=== PATIENT | male | born 1965 | race Caucasian/White ===

== ENCOUNTER 2017-11-05 10:10 | Inpatient (IN) ==
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
[2017-11-05] MEDS: 0.9 % Sodium Chloride 1,000 ML IVC SCH ×6 (11:21→17:08)
[2017-11-05 11:25] LABS: Basophils % 0.1 %; Eosinophils % 0.3 %; Hematocrit 39.4 % (37.5-50.1); Hemoglobin 13.4 g/dL (12.9-16.9); Immature Granulocytes % 0.4 % (0-4); Lymphocytes # 1.9 K/mcL (0.6-4.6); Lymphocytes % 12.2 %; Mean Corpuscular Hemoglobin 32.9 pg (28.0-33.3); Mean Corpuscular Volume 96.8 fL (83.0-100.0); Mean Platelet Volume 9.3 fL (9.4-12.4); Monocytes # 0.2 K/mcL (0.0-1.3); Monocytes % 1.2 %; Neutrophils # 13.4 K/mcL (1.6-8.9); Platelet Count 288 K/mcL (140-400); Red Blood Count 4.07 M/mcL (4.19-5.50); Red Cell Distribution Width 13.2 % (11.5-14.5); Segmented Neutrophils % 85.8 %
[2017-11-05 11:33] LABS: BUN/Creatinine Ratio 26 (6-26); Blood Urea Nitrogen 25 mg/dL (6-20); Calcium 8.6 mg/dL (8.6-10.3); Carbon Dioxide 24 mEq/L (23-29); Chloride 110 mEq/L (98-107); Glucose 188 mg/dL (70-105); Osmolality,Calculated 299 (280-300); Potassium 3.9 mEq/L (3.5-5.1); Sodium 140 mEq/L (136-145); eGFR For African Americans > 60 (> 60); eGFR For Non-African Americans > 60 (> 60)
[2017-11-05 11:34] LABS: Troponin I 0.03 ng/mL (< 0.04)
[2017-11-05 11:52] LABS: Alanine Aminotransferase 24 Units/L (7-52); Albumin 3.9 g/dL (3.5-5.7); Albumin/Globulin Ratio 1.6 (1.1-2.2); Alkaline Phosphatase 82 Units/L (34-104); Aspartate Amino Transferase 21 Units/L (13-39); Bilirubin,Indirect 0.3 mg/dL (0.0-1.2); Bilirubin,Total 0.3 mg/dL (0.3-1.0); Globulin 2.5 g/dL (2.4-3.5); Total Protein 6.4 g/dL (6.4-8.9)
[2017-11-05 12:51] LABS: Thyroid Stimulating Hormone 2.512 mcIU/mL (0.340-5.600)
[2017-11-05 12:55] LABS: Bilirubin,Urine Small (Negative); Blood,Urine Negative (Negative); Clarity,Urine Cloudy (Clear); Color,Urine Yellow (Yellow); Glucose,Urine (UA) Normal (Normal); Ketones,Urine Negative (Negative); Leukocyte Esterase,Urine Negative (Negative); Nitrite,Urine Negative (Negative); Protein,Urine 30 mg/dL (Neg-Trace); Specific Gravity,Urine 1.025 (1.010-1.025); Urobilinogen,Urine Normal (Normal)
[2017-11-05 12:56] LABS: Bacteria,Urine None Seen per hpf (None-Few); Squamous Epithelial Cell,Urine Many per lpf (None-Few)
[2017-11-05] MEDS ORDERED: MetroNIDAZOLE 500 MG/100 ML 500 MG/100 ML BAG IVPB ONE (13:13)
[2017-11-05] MEDS ORDERED: 0.9 % Sodium Chloride 1,000 ML IVC ONE (13:14)
[2017-11-05 14:32] LABS: Amphetamine Screen,Urine Negative ng/mL (Cutoff=1000); Barbiturate Screen,Urine Negative ng/mL (Cutoff=200); Benzodiazepines Screen,Urine Negative ng/mL (Cutoff=200); Cannabinoid Screen,Urine Positive ng/mL (Cutoff = 50); Cocaine Screen,Urine Negative ng/mL (Cutoff= 300); Opiate Screen,Urine Negative ng/mL (Cutoff=300); Phencyclidine Screen,Urine Negative ng/mL (Cutoff=25)
[2017-11-05] MEDS ORDERED: Naloxone 0.4 MG/ML INJ IVP PRN (14:35)
--- NOTE | 2017-11-05 14:41 | Internal Med History&Physical ---
Date of Encounter: 11/05/17 Time of Encounter: 14:41 Internal Medicine - H&P: HPI Chief complaint: syncopal episode Admitted From: Emergency Dept Plans for Post Hospital Care: Home History of present illness: Mr. Fine is a 52 year old male who is a background medical history of for COPD, seizures. Patient also has a strong psychiatric history in terms of a anxiety, depression , previous suicidal attempt. Patient came to emergency department with the chief complaints of syncopal episode. Patient's provided with the majority of the history. She was telling that around 8:30/9 AM in the morning she noticed that patient was coming out of the bathroom and at that time she she notices that patient had a fall on the floor. Patient had a minor injury on his left forehead. She claims that patient was syncopal eyes but he was aware of the surrounding. Patient denies chest pain, nausea, or diarrhea, dizziness, abdominal pain, vomiting. Workup in the emergency room: Patient was evaluated in the emergency room. Baseline labs were drawn. Noted that patient's white blood cell count is [address] scan of the head was negative for any fracture. Chest x-ray was not suggestive of any acute cardiopulmonary process. CT abdomen was suggestive of enteritis/infection. Noted that upon my arrival patient's body temperature was 93 degree Fahrenheit. Patient was given a warm blankets. Reason for admission: Syncopal episode likely secondary to infective etiology possible source small/large intestine. Family history: Noncontributory Past Med Surg Social Fam HX - Past Medical History Medical history: COPD, seizures Psychiatric history: anxiety, prior suicide attempt, previous psychiatric hospitalization - Social History Smoking Status: Current every day smoker Alcohol use: heavy Drug use: none - Family History Father Living Status: Still Living Hx Family Cardiac Disorders: Yes (heart attack 52y/o) Internal Medicine - H&P: Meds Albuterol Sulfate [Albuterol Inhaler] 2 puff IH Q4-6H PRN 11/05/17 [History] 3 Allergy/AdvReac Type Severity Reaction Status Date / Time acetaminophen [From Percocet] Allergy Itching Verified 11/05/17 16:59 Oxycodone Allergy Itching Verified 11/05/17 16:59 All Systems PM: A 10-system review of systems was performed and is negative for pertinent findings except as documented above in the HPI. - Constitutional Constitutional: excessive sweating, falls, lethargy, weakness, no chills, no fever(s), no night sweats - EENT Eyes: no change in vision, no discharge, no pain, no photophobia Ears: no ear discharge, no ear pain, no tinnitus Nose, mouth and throat: no dysphagia, no nasal discharge, no neck pain, no sore throat - Cardiovascular Cardiovascular ROS IM: no chest pain, no diaphoresis, no dyspnea, no lightheadedness, no palpitations, no syncope - Respiratory Respiratory: no cough, no dyspnea, no wheezing, no excessive phlegm production - Gastrointestinal Gastrointestinal: abdominal pain, no diarrhea, no hematemesis, no hematochezia, no melena, no nausea, no vomiting - Musculoskeletal Musculoskeletal ROS IM: no numbness, no tingling - Integumentary Integumentary IM: no rash, no unusual bruising - Neurological Neurological ROS: no confusion, no convulsions, no focal weakness, no numbness, no tingling, no tremor(s) - Hematologic/Lymphatic Hematologic/Lymphatic: no easy bruising - Constitutional Vitals: Temp Pulse Resp BP Pulse Ox 98.2 F 84 18 117/68 96 11/05/17 12:20 11/05/17 13:08 11/05/17 14:32 11/05/17 14:32 11/05/17 13:08 General appearance: Present: A&O X 3, pleasant, no acute distress, answers questions appropriately - Head Head exam: Present: atraumatic, normocephalic - Eye Eye exam: Present: PERRL, conjuntiva pink, sclera anicteric Pupils: Present: PERRL - Neck Neck exam general surgery: Present: supple, trachea midline. Absent: lymphadenopathy - Respiratory Respiratory exam: Present: CTAB. Absent: accessory muscle use, rales, rhonchi, wheezes - Cardiovascular Cardiovascular exam: Present: RRR, +S1, +S2. Absent: diastolic murmur, gallop, rubs, systolic murmur - GI/Abdominal GI/Abdominal exam: Present: normal bowel sounds, soft, no peritoneal signs. Absent: distended, tenderness - Extremities Exam Extremities exam: Present: warm, radial pulses palpable and symmetrical. Absent : calf tenderness, cyanotic, pedal edema - Neurological Exam Neurological exam: Present: CN II-XII intact, oriented X3, no focal deficits. Absent: pronater drift, facial droop, speech deficit - Skin Skin exam: Present: dry, intact Internal Med - H&P Results - Labs CBC & Chem 7: 11/05/17 10:47 11/05/17 10:47 - Assessment and plan (1) Gastroenteritis Current Visit: Yes Status: Acute Assessment and plan: 52/male Admitted with syncopal episode. Likely secondary to gastroenteritis. Plan: Admit as inpatient. Cipro/Flagyl. IV fluids. Close monitoring of the general condition. I examined this patient in the emergency department room #23. Patient's was at bedside. Plan of care discussed with patient and his . They verbalize understanding. (2) COPD (chronic obstructive pulmonary disease) Current Visit: Yes Status: Acute Assessment and plan: Patient smokes heavily. Discussed at length regarding discontinuation of smoking. Patient claims that he will think over it. Qualifiers: COPD type: unspecified COPD Qualified Code(s): J44.9 - Chronic obstructive pulmonary disease, unspecified (3) Anxiety and depression Current Visit: Yes Status: Acute Assessment and plan: Patient does have anxiety/depression. At this point his symptoms are very well controlled. We will monitor him very closely. (4) Seizures Current Visit: Yes Status: Acute Assessment and plan: Noted that patient used to have seizures in the past. No active seizures noted now. we will closely monitor this patient. Seizure precaution/fall precaution. (5) DVT prophylaxis Current Visit: Yes Status: Acute Assessment and plan: Heparin Medical decision making: This patient has a moderate to severe risk of worsening in spite of being on appropriate medication due to the underlying complex comorbid conditions. - Time Spent With Patient Total time spent is greater than 50% in coordination of care (as documented) at patient's floor/unit and/or counseling patient:
[2017-11-05] MEDS ORDERED: MetroNIDAZOLE 500 MG/100 ML 500 MG/100 ML BAG IVPB SCH (16:00)
[2017-11-05] MEDS: *HR* Heparin 5,000 UNIT/ML VIAL SQ SCH (17:10)
[2017-11-05] MEDS: Nicotine 21 MG PATCH.TD24 TD SCH (17:51)
[2017-11-05] MEDS: MetroNIDAZOLE 500 MG/100 ML 500 MG/100 ML BAG IVPB SCH (20:57)
[2017-11-06] MEDS: *HR* Heparin 5,000 UNIT/ML VIAL SQ SCH ×4 (00:16→23:33)
[2017-11-06 03:34] LABS: Basophils % 0.4 %; Eosinophils # 0.2 K/mcL (0.0-0.6); Eosinophils % 2.1 %; Hematocrit 31.5 % (37.5-50.1); Immature Granulocytes % 0.1 % (0-4); Lymphocytes # 3.8 K/mcL (0.6-4.6); Lymphocytes % 51.4 %; Mean Corpuscular HGB Conc 34.3 g/dL (31.6-35.5); Mean Corpuscular Hemoglobin 33.6 pg (28.0-33.3); Mean Corpuscular Volume 98.1 fL (83.0-100.0); Mean Platelet Volume 9.5 fL (9.4-12.4); Monocytes # 0.4 K/mcL (0.0-1.3); Monocytes % 5.8 %; Neutrophils # 2.9 K/mcL (1.6-8.9); Platelet Count 215 K/mcL (140-400); Red Blood Count 3.21 M/mcL (4.19-5.50); Red Cell Distribution Width 13.4 % (11.5-14.5); Segmented Neutrophils % 40.2 %
[2017-11-06 03:40] LABS: Prothrombin Time 10.7 Seconds (9.4-12.1)
[2017-11-06 03:41] LABS: Hemoglobin 10.8 g/dL (12.9-16.9)
[2017-11-06 03:43] LABS: Activated Partial Thrombo Time 27.2 Seconds (26.0-36.0)
[2017-11-06 03:54] LABS: Alanine Aminotransferase 20 Units/L (7-52); Albumin 3.3 g/dL (3.5-5.7); Albumin/Globulin Ratio 1.7 (1.1-2.2); Alkaline Phosphatase 59 Units/L (34-104); Aspartate Amino Transferase 22 Units/L (13-39); BUN/Creatinine Ratio 25 (6-26); Bilirubin,Total 0.3 mg/dL (0.3-1.0); Blood Urea Nitrogen 19 mg/dL (6-20); Calcium 8.3 mg/dL (8.6-10.3); Carbon Dioxide 20 mEq/L (23-29); Chloride 114 mEq/L (98-107); Chol/HDL Ratio 2.4 (0-4.9); Cholesterol 121 mg/dL (< 200); Glucose 93 mg/dL (70-105); HDL Cholesterol 51 mg/dL (40-59); LDL Cholesterol,Calculated 58 mg/dL (0-99); Magnesium 1.9 mg/dL (1.6-2.6); Osmolality,Calculated 286 (280-300); Phosphorous 3.6 mg/dL (2.7-4.5); Potassium 3.9 mEq/L (3.5-5.1); Sodium 137 mEq/L (136-145); Total Protein 5.3 g/dL (6.4-8.9); Triglycerides 58 mg/dL (< 150); eGFR For African Americans > 60 (> 60); eGFR For Non-African Americans > 60 (> 60)
[2017-11-06] MEDS: MetroNIDAZOLE 500 MG/100 ML 500 MG/100 ML BAG IVPB SCH ×3 (04:42→20:45)
[2017-11-06] MEDS: 0.9 % Sodium Chloride 1,000 ML IVC SCH (09:08)
--- NOTE | 2017-11-06 12:26 | Internal Med Progress Note ---
<Jean Claude Mello - Last Filed: 11/06/17 12:22> Date of Encounter: 11/06/17 Time of Encounter: 09:15 - Assessment and plan (1) Gastroenteritis Current Visit: Yes Status: Acute Assessment and plan: Gastroenteritis possibly contributory to patient's syncope Patient denies nausea/vomiting, abdominal pain, or diarrhea/constipation Continue patient Cipro/Flagyl started on 11/05/17 Day 1 Patient taking by mouth without problem, will stop IV fluids (2) COPD (chronic obstructive pulmonary disease) Current Visit: Yes Status: Acute Assessment and plan: No wheezing on auscultation Patient smokes heavily Discussed at length regarding discontinuation of smoking Patient claims that he will think over it Breathing treatments if needed Qualifiers: COPD type: unspecified COPD Qualified Code(s): J44.9 - Chronic obstructive pulmonary disease, unspecified (3) Seizures Current Visit: Yes Status: Acute Assessment and plan: Noted that patient used to have seizures as a child No active seizures noted now we will closely monitor this patient. Seizure precaution/fall precaution. (4) DVT prophylaxis Current Visit: Yes Status: Acute Assessment and plan: Heparin (5) Anxiety and depression Current Visit: Yes Status: Acute Assessment and plan: Patient does have anxiety/depression At this point his symptoms are very well controlled (6) Syncope Current Visit: Yes Status: Suspected Assessment and plan: Patient reports syncopal episode at home Slight confusion upon wakening Episode of diaphoresis and lightheadedness began after her trip to bathroom Abrasion outpatient for had noted Head CT negative Previous history of seizure disorders, no seizures in some time Suspect syncope due to vasovagal/micturition No ischemic changes seen on EKG We will continue to monitor via telemetry We will obtain echocardiogram We will stop IV fluids as patient has had significant amount Continue Cipro/Flagyl Qualifiers: Syncope type: vasovagal syncope Qualified Code(s): R55 - Syncope and collapse - Time Spent With Patient Total time spent is greater than 50% in coordination of care (as documented) at patient's floor/unit and/or counseling patient: - Subjective Interval history: Patient reports that he is doing well today. He has not had any return of his previous symptoms. He has not had anymore episodes of lightheadedness, diaphoresis, or flushing. He denies fever/chills, denies chest pain, denies palpitations, denies confusion. - Constitutional Vitals: Temp Pulse Resp BP Pulse Ox 98.2 F 65 18 121/85 99 11/06/17 10:48 11/06/17 10:48 11/06/17 10:48 11/06/17 10:48 11/06/17 10:48 General appearance: Present: A&O X 3, pleasant, no acute distress, answers questions appropriately Exam: General: Cooperative, pleasant, no acute distress, alert and oriented 3, answers questions appropriately HEENT: Normocephalic, small abrasion over left eyebrow, Conjunctiva pink, sclera anicteric, bilateral pupils reactive, EOMI, left pupil slightly larger the right pupil (chronic), oral mucosa moist, no orophargeal erythema or exudates Respiratory: No accessory muscle usage, clear to auscultation bilaterally, no wheezes/rhonchi/rales appreciated Cardiovascular: Regular rate and rhythm, S1 and S2 present, no murmurs/rubs/ gallops/clicks appreciated GI/abdominal: Nondistended, nontender, soft, normal bowel sounds, no peritoneal signs Extremities: No calf tenderness, no pedal edema appreciated, warm, lower extremity pulses palpable and symmetrical Neurological: Alert and oriented 3, no facial droop, no focal deficits Skin: Dry, intact, normal color Internal Medicine: Result - Labs CBC & Chem 7: 11/06/17 03:14 11/06/17 03:14 Labs: Short CBC 11/06/17 Range/Units 03:14 WBC 7.3 D (4.3-11.1) K/mcL Hgb 10.8 L D (12.9-16.9) g/dL Hct 31.5 L (37.5-50.1) % Plt Count 215 (140-400) K/mcL Neutrophils # 2.9 (1.6-8.9) K/mcL BMP 11/06/17 03:14 Sodium 137 Potassium 3.9 Chloride 114 H Carbon Dioxide 20 L BUN 19 Creatinine 0.75 Glucose 93 Calcium 8.3 L Cardiac Enzymes 11/05/17 11/05/17 11/06/17 Range/Units 15:26 20:57 03:14 Troponin I 0.05 H* 0.03 < 0.03 (< 0.04) ng/mL Liver Function 11/06/17 Range/Units 03:14 Total Bilirubin 0.3 (0.3-1.0) mg/dL AST 22 (13-39) Units/L ALT 20 (7-52) Units/L Alkaline Phosphatase 59 (34-104) Units/L Albumin 3.3 L (3.5-5.7) g/dL - ABG Interpretation ABG results: PT/INR, D-dimer PT 10.7 Seconds (9.4-12.1) 11/06/17 03:14 Consult Discharge Plan - Plan Referrals: Asim Ramos MD [Primary Care Provider] - <Miles Raymond - Last Filed: 11/06/17 13:40> Date of Encounter: 11/06/17 - Assessment and plan (1) Gastroenteritis Current Visit: Yes Status: Acute (2) COPD (chronic obstructive pulmonary disease) Current Visit: Yes Status: Acute Qualifiers: COPD type: unspecified COPD Qualified Code(s): J44.9 - Chronic obstructive pulmonary disease, unspecified (3) Anxiety and depression Current Visit: Yes Status: Acute (4) Seizures Current Visit: Yes Status: Acute (5) DVT prophylaxis Current Visit: Yes Status: Acute (6) Syncope Current Visit: Yes Status: Suspected Qualifiers: Syncope type: vasovagal syncope Qualified Code(s): R55 - Syncope and collapse - Time Spent With Patient Total time spent is greater than 50% in coordination of care (as documented) at patient's floor/unit and/or counseling patient: - Constitutional Vitals: Temp Pulse Resp BP Pulse Ox 98.2 F 65 18 121/85 99 11/06/17 10:48 11/06/17 10:48 11/06/17 10:48 11/06/17 10:48 11/06/17 10:48 Internal Medicine: Result - Labs CBC & Chem 7: 11/06/17 03:14 11/06/17 03:14 Labs: Short CBC 11/06/17 Range/Units 03:14 WBC 7.3 D (4.3-11.1) K/mcL Hgb 10.8 L D (12.9-16.9) g/dL Hct 31.5 L (37.5-50.1) % Plt Count 215 (140-400) K/mcL Neutrophils # 2.9 (1.6-8.9) K/mcL BMP 05/13/18 03:14 Sodium 137 Potassium 3.9 Chloride 114 H Carbon Dioxide 20 L BUN 19 Creatinine 0.75 Glucose 93 Calcium 8.3 L Cardiac Enzymes 11/05/17 11/05/17 11/06/17 Range/Units 15:26 20:57 03:14 Troponin I 0.05 H* 0.03 < 0.03 (< 0.04) ng/mL Liver Function 11/06/17 Range/Units 03:14 Total Bilirubin 0.3 (0.3-1.0) mg/dL AST 22 (13-39) Units/L ALT 20 (7-52) Units/L Alkaline Phosphatase 59 (34-104) Units/L Albumin 3.3 L (3.5-5.7) g/dL - ABG Interpretation ABG results: PT/INR, D-dimer PT 10.7 Seconds (9.4-12.1) 11/06/17 03:14 - Attending Attestation I examined this patient and my medical decision-making was reviewed with the Resident Physician on 11/06/17. I agree with the documented findings, disposition and treatment plan as described except to the extent set forth below. PMH of seizures, COPD, being worked up for syncope. Unremarkable for now , incidental finding of enteritis, continue antibiotics, obtain ECHO. Syncope is possibly vasovagal. Rest of details as in the resident physician's documentation
[2017-11-06] MEDS: Nicotine 21 MG PATCH.TD24 TD SCH (16:56)
[2017-11-07 03:22] LABS: Basophils # 0.1 K/mcL (0.0-0.2); Basophils % 0.6 %; Eosinophils # 0.3 K/mcL (0.0-0.6); Hematocrit 33.9 % (37.5-50.1); Hemoglobin 11.3 g/dL (12.9-16.9); Immature Granulocytes % 0.2 % (0-4); Lymphocytes # 3.9 K/mcL (0.6-4.6); Lymphocytes % 44.5 %; Mean Corpuscular HGB Conc 33.3 g/dL (31.6-35.5); Mean Corpuscular Hemoglobin 32.5 pg (28.0-33.3); Mean Corpuscular Volume 97.4 fL (83.0-100.0); Mean Platelet Volume 9.8 fL (9.4-12.4); Monocytes # 0.5 K/mcL (0.0-1.3); Monocytes % 5.6 %; Neutrophils # 4.1 K/mcL (1.6-8.9); Platelet Count 226 K/mcL (140-400); Red Blood Count 3.48 M/mcL (4.19-5.50); Red Cell Distribution Width 13.4 % (11.5-14.5); Segmented Neutrophils % 46.1 %
[2017-11-07 03:41] LABS: BUN/Creatinine Ratio 21 (6-26); Blood Urea Nitrogen 16 mg/dL (6-20); Calcium 8.2 mg/dL (8.6-10.3); Carbon Dioxide 22 mEq/L (23-29); Chloride 112 mEq/L (98-107); Glucose 88 mg/dL (70-105); Osmolality,Calculated 289 (280-300); Potassium 3.6 mEq/L (3.5-5.1); Sodium 139 mEq/L (136-145); eGFR For African Americans > 60 (> 60); eGFR For Non-African Americans > 60 (> 60)
[2017-11-07] MEDS: MetroNIDAZOLE 500 MG/100 ML 500 MG/100 ML BAG IVPB SCH (05:08)
[2017-11-07 05:21] VITALS: BP 118/80
--- NOTE | 2017-11-07 08:39 | Discharge Summary ---
<Jean Claude Mello - Last Filed: 11/07/17 08:45> - NOTES TO OUTPATIENT PROVIDER Notes to Outpatient Provider: Patient ad syncopal event at home and underwent a workup at the hospital including: EKG, head CT, chest x-ray, Abdomen and pelvis CT, and echocardiogram. A series of troponins was negative and TSH with normal. There were no signs of infection. Given his description of the event, it was most likely vasvagal/micturition syncope. With no recurrence of the event, he is safe/stable for discharge. Orders not resulted at time of discharge: Pending orders 11/05/17 15:26 Drug Screen 9 Reflex Conf Qnt Routine Date of Encounter: 11/07/17 Time of Encounter: 08:10 - Discharge Diagnosis (1) Syncope Priority: Primary Status: Suspected Qualifiers: Syncope type: vasovagal syncope Qualified Code(s): R55 - Syncope and collapse (2) Gastroenteritis Priority: Primary Status: Ruled-out Assessment and Plan: Gastroenteritis possibly contributory to patient's syncope Patient denies nausea/vomiting, abdominal pain, or diarrhea/constipation Continue patient Cipro/Flagyl started on 11/05/17 Day 1 Patient taking by mouth without problem, will stop IV fluids (3) COPD (chronic obstructive pulmonary disease) Priority: Primary Status: Chronic Qualifiers: COPD type: unspecified COPD Qualified Code(s): J44.9 - Chronic obstructive pulmonary disease, unspecified (4) Seizures Priority: Secondary Status: Suspected (5) DVT prophylaxis Priority: Secondary Status: Resolved (6) Anxiety and depression Priority: Primary Status: Chronic Hospital course: Mr. Fine is a 52 year old male with prior medical history of COPD and childhood seizures who presented to [facility] on 11/05/17 after having a syncopal event at home. He underwent a workup at the hospital including: EKG, head CT, chest x-ray, Abdomen and pelvis CT, and echocardiogram. A series of troponins was negative and TSH with normal. There were no signs of infection, the CT did suggest possible enteritis, but he was having no symptoms to suggest this. Given his description of the event, it was most likely vasvagal/micturition syncope. With no recurrence of the event, he is safe/stable for discharge. Discharge discussed with: patient, family - Time Spent with Patient Total time spent providing and/or coordinating discharge services: Greater than 30 minutes - Discharge Medications Home Medications: Albuterol Sulfate [Albuterol Inhaler] 2 puff IH Q4-6H PRN 11/05/17 [History] Allergies/Adverse Reactions: 3 Allergy/AdvReac Type Severity Reaction Status Date / Time acetaminophen [From Percocet] Allergy Itching Verified 11/05/17 16:59 Oxycodone Allergy Itching Verified 11/05/17 16:59 Date of admission: 11/05/17 14:12 Primary care physician: Asim Ramos MD Consults: 11/05/17 16:02 Consult to Educational Program Assistant [CONS] Routine Reason for SW Consult: Help with reapplying for HCAP Discharging clinician: Jean Claude Mello Anticipated date of discharge: 11/07/17 - Constitutional Vitals: Temp Pulse Resp BP Pulse Ox 97.8 F 73 16 118/80 95 11/07/17 05:16 11/07/17 05:16 11/07/17 05:16 11/07/17 05:16 11/07/17 05:16 General appearance: Present: A&O X 3, pleasant, no acute distress, answers questions appropriately Exam: General: Cooperative, pleasant, no acute distress, alert and oriented 3, answers questions appropriately HEENT: Normocephalic, small abrasion over left eyebrow, Conjunctiva pink, sclera anicteric, bilateral pupils reactive, EOMI, left pupil slightly larger the right pupil (chronic), oral mucosa moist, no orophargeal erythema or exudates Respiratory: No accessory muscle usage, clear to auscultation bilaterally, no wheezes/rhonchi/rales appreciated Cardiovascular: Regular rate and rhythm, S1 and S2 present, no murmurs/rubs/ gallops/clicks appreciated GI/abdominal: Nondistended, nontender, soft, normal bowel sounds, no peritoneal signs Extremities: No calf tenderness, no pedal edema appreciated, warm, lower extremity pulses palpable and symmetrical Neurological: Alert and oriented 3, no facial droop, no focal deficits Skin: Dry, intact, normal color - Patient Status Disposition: Home, Self-Care Condition: Good Functional capacity at discharge: independent ambulation Overall status at discharge: patient is back to baseline - Discharge Instructions Instructions: Syncope (GEN), Chronic Obstructive Pulmonary Disease (GEN), Sepsis (GEN) Follow Up With: Asim Ramos MD [Primary Care Provider] - 11/15/17 9:45 am Additional Instructions: Please return to ER if you lose consciousness again. Please return to ER if development of chest pain, palpitations, shortness of breath, fever, and chills. Please continue your home albuterol Please follow up with your PCP in 1-2 weeks - Diet and Activity Activity: increase activity as tolerated Diet: advance to your usual diet <Miles Raymond - Last Filed: 11/07/17 12:14> Orders not resulted at time of discharge: Pending orders 11/05/17 15:26 Drug Screen 9 Reflex Conf Qnt Routine Date of Encounter: 11/07/17 - Discharge Diagnosis (1) Gastroenteritis Status: Ruled-out (2) COPD (chronic obstructive pulmonary disease) Status: Chronic Qualifiers: COPD type: unspecified COPD Qualified Code(s): J44.9 - Chronic obstructive pulmonary disease, unspecified (3) Anxiety and depression Status: Chronic (4) Seizures Status: Suspected (5) DVT prophylaxis Status: Resolved (6) Syncope Status: Suspected Qualifiers: Syncope type: vasovagal syncope Qualified Code(s): R55 - Syncope and collapse Hospital course: Mr. Fine is a 52 year old male - Time Spent with Patient Total time spent providing and/or coordinating discharge services: Date of admission: 11/05/17 14:12 Primary care physician: Asim Ramos MD Consults: 11/05/17 16:02 Consult to Educational Program Assistant [CONS] Routine Reason for SW Consult: Help with reapplying for HCAP - Constitutional Vitals: Temp Pulse Resp BP Pulse Ox 97.8 F 73 16 118/80 95 11/07/17 05:16 11/07/17 05:16 11/07/17 05:16 11/07/17 05:16 11/07/17 05:16 - Attending Attestation I examined this patient and my medical decision-making was reviewed with the Resident Physician on 11/07/17. I agree with the documented findings, disposition and treatment plan as described except to the extent set forth below. 52 M PMH of seizures, COPD, being worked up for syncope. Unremarkable work up including ECHO. Patient not compliant with antiepileptic medications, not following PCP, was on BZDPs till Jun when he "fell off" with his PCP. Syncope is possibly vasovagal, he might have also had a seizure- is unable to tell if he had convulsion like movements. Safe to discharge home, no clinical enteritis, discontinue antibiotics. Rest of details as in the resident physician's documentation
[2017-11-07] MEDS: *HR* Heparin 5,000 UNIT/ML VIAL SQ SCH (08:46)
--- NOTE | 2017-11-07 15:33 | Electrocardiograph Report ---
[address] [address] Test Date: 2017-11-05 Pat Name: Chris Fine Department: 104 Room: 2N11 Gender: M Analytical Scientist: AM : 1965 Requested By: Miles Raymond Order Number: [id number] Reading MD: Oliverio Walker Measurements Intervals [place] Rate: 72 P: 70 MN: 141 QRS: 81 QRSD: 118 T: 58 QT: 391 QTc: 416 Interpretive Statements SINUS RHYTHM MODERATE INTRAVENTRICULAR CONDUCTION DELAY WARNING: DATA QUALITY MAY AFFECT INTERPRETATION Electronically Signed On 11-07-2017 15:31:06 EDT by Oliverio Walker
[2017-11-09 18:57] LABS: Amphetamines NEGATIVE ng/mL (Cutoff 30); Barbiturates NEGATIVE ng/mL (Cutoff 75); Benzodiazepines NEGATIVE ng/mL (Cutoff 75); Cocaine NEGATIVE ng/mL (Cutoff 30); Methadone NEGATIVE ng/mL (Cutoff 40); Methamphetamines NEGATIVE ng/mL (Cutoff 30); Opiates NEGATIVE ng/mL (Cutoff 30); Phencyclidine NEGATIVE ng/mL (Cutoff 15)
== END 2017-11-07 10:43 | disposition home or self-care (01) | DRG 312 ==
LOC: EMEROO 10:10 → 2NNU 14:12 → SUATTDRO 14:12 → 2NNU 15:00
PROVIDERS: ADMIT Internal Medicine; ATTEND Internal Medicine